=== PATIENT | female | born 1945 | race Hispanic/Latino ===

== ENCOUNTER 2018-05-07 15:03 | Emergency (ER) | payer OTHER ==
[~2018-05-07 15:03] MED LIST: ASPI-555 PO; BUTA1CAP49 PO; IBUP-2076 PO; METO-409 PO; ROSU20TA PO
[2018-05-07] MEDS ORDERED: DEXAMETHASONE SOD PHOSPHATE 10MG/ML 1ML VIAL ONE (15:56)
[2018-05-07] MEDS ORDERED: KETOROLAC TROMETHAMINE 15MG/ML ONE (15:57)
[2018-05-07] MEDS ORDERED: LIDOCAINE 5% TOPICAL PATCH TP ONE (15:59)
[2018-05-07] MEDS ORDERED: ONDANSETRON ODT 4 MG TAB ONE (16:15)
[2018-05-07] MEDS ORDERED: MORPHINE SULFATE 2 MG/ML 1ML SYG ONE (16:15)
[2018-05-07] MEDS ORDERED: CLONIDINE HCL 0.1 MG TABLET ONE (16:15)
== END 2018-05-07 18:45 | disposition home or self-care (01) ==
LOC: EDH 15:03
DX: M25.561 Pain in right knee (principal); I10 Essential (primary) hypertension; M19.90 Unspecified osteoarthritis, unspecified site; Z88.6 Allergy status to analgesic agent; Z98.890 Other specified postprocedural states
CPT/HCPCS: 73562; 96372 ×3; 99284; J1100; J1885

== ENCOUNTER → 2018-11-29 | Outpatient (CLI) | payer OTHER ==
[~2018-11-29] MED LIST changes: -ROSU20TA PO; +ROSU20TA23 PO
== END | disposition home or self-care (01) ==
LOC: SHCH 11:21
PROVIDERS: ATTEND Internal Medicine Cardiovascular Disease
DX: Z01.810 Encounter for preprocedural cardiovascular examination (principal); I51.7 Cardiomegaly
CPT/HCPCS: 93306

== ENCOUNTER → 2018-12-05 | Outpatient (CLI) | payer OTHER ==
[~2018-12-05] MED LIST changes: +REGADENOSON 0.4 MG/5 ML PF SYG IVP SCH
== END | disposition home or self-care (01) ==
LOC: SHCH 07:56
PROVIDERS: ATTEND Internal Medicine Cardiovascular Disease
DX: Z01.810 Encounter for preprocedural cardiovascular examination (principal); I51.7 Cardiomegaly
CPT/HCPCS: 78452; 93017; 96374; A9500 ×2; J2785

== ENCOUNTER 2019-01-23 08:46 | Inpatient (IN) | payer OTHER ==
[2019-01-17 15:09] VITALS: BP 157/64
[2019-01-17 15:22] LABS: INR 1.01 (0.85-1.15); PARTIAL THROMBOPLASTIN TIME 28.2 SEC (26.3-35.5); PROTHROMBIN TIME 10.6 SEC (9.6-11.6)
[~2019-01-23] VITALS: Ht 156.2 cm; Wt 79.6 kg
[2019-01-23] VITALS (30 sets, daily range): BP systolic 129–191; BP diastolic 70–97
[~2019-01-23 08:46] MED LIST changes: -BUTA1CAP49 PO; +CEFAZOLIN SODIUM 1 GM VIAL IVP SCH; +DICLOFENAC PO; -IBUP-2076 PO; +LACTATED RINGERS 1000ML 1,000 ML IV SCH; +LISI-617 PO; -REGADENOSON 0.4 MG/5 ML PF SYG IVP SCH; +TRAM50TA4 PO
[2019-01-23] MEDS: CEFAZOLIN SODIUM 1 GM VIAL ONE ×2 (10:24→11:45)
[2019-01-23] MEDS ORDERED: PROPOFOL 10 MG/ML 20ML VIAL IV ONE (10:33)
--- NOTE | 2019-01-23 10:33 | NUR ---
PUPILS pt has cataract lenses keron Addendum: 01/23/19 at 1035 by MANNY ARANA RN RN Amended: Links added.
[2019-01-23] MEDS ORDERED: MIDAZOLAM HCL 1 MG/ML 2ML VIAL ONE (10:34)
[2019-01-23] MEDS ORDERED: FENTANYL CITRATE PF 50 MCG/1 ML 5ML AMP IV ONE (10:34)
[2019-01-23] MEDS ORDERED: ROPIVACAINE 0.5% 5MG/ML 30ML IJ ONE (10:40)
[2019-01-23] MEDS ORDERED: VANCOMYCIN HCL 1 GM VIAL ONE (12:05)
[2019-01-23] MEDS ORDERED: TRANEXAMIC ACID 1000MG/10ML IV ONE ×2 (12:11→12:12)
[2019-01-23] MEDS ORDERED: HETASTARCH IN 0.9 % NACL 500 ML IV ONE (12:43)
[2019-01-23] MEDS ORDERED: ONDANSETRON HCL 4 MG/2 ML VIAL ONE (12:54)
[2019-01-23] MEDS ORDERED: LIDOCAINE PF 2% 5ML ABBOJECT ONE (12:55)
[2019-01-23] MEDS ORDERED: ROCURONIUM 10MG/1ML SYR 10 MG/ML ML ONE (12:56)
[2019-01-23] MEDS ORDERED: DEXAMETHASONE SOD PHOSPHATE 10MG/ML 1ML VIAL ONE (12:57)
[2019-01-23] MEDS ORDERED: GLYCOPYRROLATE 1 MG/5 ML SYRINGE ONE (12:57)
[2019-01-23] MEDS ORDERED: NEOSTIGMINE 5MG/5ML SYR IV ONE (12:57)
[2019-01-23] MEDS ORDERED: FENTANYL CITRATE PF 50 MCG/1 ML 2ML VIAL ONE (13:17)
[2019-01-23] MEDS ORDERED: OXYCODONE HCL 5 MG TAB PO PRN ×2 (13:30)
[2019-01-23] MEDS ORDERED: FERROUS FUMARATE 324 MG TABLET PO PRN (13:30)
[2019-01-23] MEDS ORDERED: ONDANSETRON HCL 4 MG/2 ML VIAL IVP PRN (13:30)
[2019-01-23] MEDS: ACETAMINOPHEN EXTRA STRENGTH 500 MG TABLET PO SCH ×2 (13:30→20:50)
[2019-01-23] MEDS ORDERED: TRAMADOL HCL 50 MG TABLET PO PRN (13:30)
[2019-01-23] MEDS ORDERED: MEPERIDINE-PF 25 MG/ML SYG ONE ×2 (13:33→13:44)
[2019-01-23] MEDS: SODIUM CHLORIDE 0.9% 1000ML 1,000 ML IV SCH (13:50)
[2019-01-23] MEDS ORDERED: HYDROMORPHONE 1 MG/1 ML AMP ONE (14:05)
[2019-01-23] MEDS ORDERED: HYDRALAZINE HCL 20 MG/ML VIAL ONE (14:21)
--- NOTE | 2019-01-23 15:15 | NUR ---
MELVIN PEMBERTON NOTFIED OF IMAGES OF MOST RECENT KUB
--- NOTE | 2019-01-23 15:30 | NUR ---
DR. JIMMY GOTTI
--- NOTE | 2019-01-23 15:40 | NUR ---
MELVIN PEMBERTON CALLED ME BACK STATED HAD SPOKEN W DR. MARQUEZ AND TO DO CT ABD/PELVIS WITH IV CONTRAST ONLY
--- NOTE | 2019-01-23 15:41 | NUR ---
DR. MARQUEZ'S ASSISTANCE CALLED ME BACK, MADE AWARE OF GALI 'S REPORT AND THAT NILAY SOTO, HAD JUST CALLED ME BACK AND GIVEN ORDERS PER DR. MARQUEZ. BUT STILL THE REPORT OF THE KUB WAS GIVEN
[2019-01-23] MEDS: MORPHINE SULFATE 4 MG/1ML SYG IVP PRN (17:03)
[2019-01-23] MEDS: CEFAZOLIN SODIUM 1 GM VIAL IVP SCH (20:16)
[2019-01-23] MEDS: ASPIRIN 81 MG EC TAB PO SCH (20:48)
[2019-01-23] MEDS: METOPROLOL TARTRATE 50 MG TAB PO SCH (20:48)
[2019-01-23] MEDS: PREGABALIN 25 MG CAP PO SCH (20:48)
[2019-01-23] MEDS: CELECOXIB 200 MG CAP PO SCH (20:48)
[2019-01-23] MEDS: OXYCODONE HCL 5 MG TAB PO PRN (20:51)
[2019-01-24 03:45] VITALS: BP_SYST 118; BP_SYST 127; BP_DIAS 56; BP_DIAS 76
[2019-01-24 04:09] LABS: CREATININE 0.9 mg/dL (0.5-1.5); HEMATOCRIT 38.3 % (36-48); PLATELET COUNT (AUTO) 179 K/uL (130-400); POTASSIUM 4.6 mmol/L (3.5-5.1); RED BLOOD CELL COUNT(AUTO) 4.07 MIL/uL (4.00-5.50); RED CELL DISTRIBUTION WIDTH 13.8 % (11.0-15.5); WHITE BLOOD COUNT (AUTO) 12.1 K/uL (4.8-10.8)
[2019-01-24] MEDS: ACETAMINOPHEN EXTRA STRENGTH 500 MG TABLET PO SCH ×2 (05:51→14:41)
[2019-01-24] MEDS: CEFAZOLIN SODIUM 1 GM VIAL IVP SCH (05:54)
[2019-01-24] MEDS ORDERED: CEFAZOLIN SODIUM 1 GM VIAL ONE (05:55)
[2019-01-24 07:38] VITALS: BP 108/65
[2019-01-24] MEDS: OXYCODONE HCL 5 MG TAB PO PRN (08:48)
[2019-01-24] MEDS: ASPIRIN 81 MG EC TAB PO SCH (08:49)
[2019-01-24] MEDS: CELECOXIB 200 MG CAP PO SCH (08:49)
[2019-01-24] MEDS: PREGABALIN 25 MG CAP PO SCH (08:49)
[2019-01-24] MEDS ORDERED: TAMSULOSIN HCL 0.4 MG CAP.ER.24H PO SCH (09:00)
[2019-01-24] MEDS: METOPROLOL TARTRATE 50 MG TAB PO SCH (09:00)
[2019-01-24] MEDS ORDERED: POLYETHYLENE GLYCOL 3350 17 GM POWD.PACK PO SCH (09:00)
[2019-01-24] MEDS ORDERED: LISINOPRIL 5 MG TABLET PO SCH (09:00)
[2019-01-24] MEDS: SODIUM CHLORIDE 0.9% 1000ML 1,000 ML IV SCH (09:18)
--- NOTE | 2019-01-24 10:00 | NUR ---
INITIAL--HH/DME MET W PT, SISTER AT BEDSIDE, PT AAOX3, LIVES ALONE, WILL BE GOING TO STAY WITH SISTER DAO WHO WILL PROVIDE TRANSPORT. STAIRS AT HOME. STATES PTX SAID THEY WILL PRACTICE WITH HER. , NO DME AT HOME, DRIVES, INDP OF ADLS PRIOR TO THE SURGERY . ADVISED THAT DR. AGGARWAL SET UP HOME HEALTH- WILL CONFIRM WHICH HH; SISTER HAS RX FOR WKR AND NUMBER OF COMPANY SHE WANTS TO USE. WILL SEND WITH [employer] INFO; CALL TO DR. FELDER'S OFFICE- CONFIRMED ITS [facility]- ABIDA OBTAINED AND INFO SENT. CALL TO CURTIS AT [facility] FOR THE DMW/3 IN 1 CHAIR - AND INFO MAYI WHITT RN AWARET Addendum: 01/24/19 at 1344 by SANJAY CAMERON RN CM Amended: Links added.
[2019-01-24] MEDS: MORPHINE SULFATE 4 MG/1ML SYG IVP PRN (10:46)
[2019-01-24 11:19] VITALS: BP 115/63
[2019-01-24] MEDS ORDERED: AEC81 PO (12:38)
[2019-01-24 15:46] VITALS: BP 116/51
--- NOTE | 2019-01-24 17:00 | NUR ---
DISCHARGE DISCHARGE TEACHING PROVIDED TO PATIENT. PROVIDED TEACHING REGARDING RX (ASA), JOSÉ LUIS GARCIA, SCHEDULED F/U APPT WITH DR. FELDER. PATIENT VERBALIZED UNDERSTANDING OF DISCHARGE TEACHING. DME COMPANY HAS NOT DELIVERED EQUIPMENT AT TIME OF DISCHARGE, I INFORMED FELICITAS GRACE OF THIS. PATIENT TO GO HOME WITH [facility] THAT IS TO BE RETURNED TO HOSPITAL PENDING DME ARRIVAL TO PATIENTS HOME. PERFORMED RIGHT KNEE DRESSING CHANGE, RIGHT KNEE INCISION APPROXIMATED AND ASYMPTOMATIC. CLEANSED WITH BETADINE, APPLIED NONADHERENT GAUZE, SECURED WITH MEDIPORE TAPE. REINFORCED DRESSING WITH TEGADERM. PATIENT TO BE DRIVEN HOME BY FAMILY. REMOVED 20G IV FROM RIGHT FOREARM, CATHETER INTACT. NURSE REPORT GIVEN TO SILVESTRE PATEL OF [facility] [phone], INFORMED SILVESTRE PATEL OF DR. FELDER'S ORDERS AND ALSO Tenzin ALEJANDRE NP DISCHARGE ORDERS.
[2019-01-26] MEDS ORDERED: BISACODYL 10 MG SUPP.RECT RC PRN (13:30)
== END 2019-01-24 18:55 | disposition home health service (06) | DRG 470 ==
LOC: DAH 08:46 → OBSVTOIN 08:47 → INTOOBSV 08:47 → 4AH 08:47
PROVIDERS: ADMIT Orthopaedic Surgery; ATTEND Orthopaedic Surgery
PROC: 0SRC0JZ Replacement of Right Knee Joint with Synthetic Substitute, Open Approach (ICD-10-PCS; principal; 2019-01-23 11:22)
DX: M17.11 Unilateral primary osteoarthritis, right knee (principal); I10 Essential (primary) hypertension; E78.00 Pure hypercholesterolemia, unspecified
CPT/HCPCS: 36415; 36591; 80048; 85027; 85610; 85730; 87641; 97039; G0378; J0360; J0690; J1100; J1170; J2001; J2175; J2250; J2270; J2405; J2704; J2710; J2795; J3010; J3370; J3490; J7120

== ENCOUNTER 2023-05-03 10:44 | Emergency (ER) | payer OTHER ==
[~2023-05-03] VITALS: Ht 160 cm; Wt 74.8 kg
[~2023-05-03 10:44] MED LIST changes: +AEC81 PO; -ASPI-555 PO; -CEFAZOLIN SODIUM 1 GM VIAL IVP SCH; -LACTATED RINGERS 1000ML 1,000 ML IV SCH; -LISI-617 PO; +LISI5TAB21 PO
[2023-05-03 11:10] VITALS: BP 188/101; PULSE 56; RESP 16; O2SAT 98
== END 2023-05-03 12:55 | disposition home or self-care (01) ==
LOC: EDH 10:44
DX: M79.661 Pain in right lower leg (principal); E78.00 Pure hypercholesterolemia, unspecified; I10 Essential (primary) hypertension; Z79.82 Long term (current) use of aspirin; Z79.899 Other long term (current) drug therapy; Z88.5 Allergy status to narcotic agent; Z88.6 Allergy status to analgesic agent; Z90.49 Acquired absence of other specified parts of digestive tract
CPT/HCPCS: 93971